=== PATIENT | male | born 1960 | race Caucasian/White ===

== ENCOUNTER → 2018-05-11 | Outpatient (CLI) | payer BC ==
[~2018-05-11] MED LIST: AZTH250C PO; LEVO500T69 PO; PRCD5U PO; PRD50T PO
--- NOTE | 2018-05-11 14:35 | Diagnostic Imaging Report ---
INDICATION: Swelling burning in the knees. Study compared with left knee radiographs 03/22/2012. There is moderate bilateral medial greater than lateral tibiofemoral compartmental osteoarthritis left more so than right and having increased on the left from the prior. No loose body, fracture or evidence for joint effusion however. IMPRESSION: Left greater than right predominantly medial tibiofemoral compartmental osteoarthritis has increased from a study of 2011. An acute appearing abnormality however not identified. Dictated by: Dictated on workstation # [id number]
== END ==
LOC: RAD 13:21
PROVIDERS: ATTEND Orthopaedic Surgery
DX: M17.0 Bilateral primary osteoarthritis of knee (principal)

== ENCOUNTER 2019-09-02 13:21 | Outpatient (CLI) | payer BC ==
[~2019-09-02] VITALS: Ht 172 cm; Wt 119.5 kg
[2019-09-02] MEDS ORDERED: CYAN250010 PO (13:36)
[2019-09-02] MEDS ORDERED: MULT1CAP27 PO (13:36)
[2019-09-02] MEDS ORDERED: OMG1KC PO (13:36)
[2019-09-02] MEDS ORDERED: BEET ROOT PO (13:36)
[2019-09-02] MEDS ORDERED: METF-397 PO (13:36)
[2019-09-02] MEDS ORDERED: CHOL200025 PO (13:36)
[2019-09-02] MEDS ORDERED: MAGN400C PO (13:36)
[2019-09-02] MEDS ORDERED: ASCO500C17 PO (13:36)
[2019-09-02] MEDS ORDERED: CIDE500T PO (13:36)
[2019-09-02] MEDS ORDERED: TURM538C PO (13:36)
[2019-09-02 13:38] VITALS: BP 158/100
[2019-09-02 14:11] LABS: BASOPHILS % (AUTO) 0 % (0-10); EOSINOPHILS # (AUTO) 0.1 10^3/uL (0.0-0.3); EOSINOPHILS % (AUTO) 1 % (0-10); HEMATOCRIT 43 % (40-54); HEMOGLOBIN 14.2 G/DL (13.3-17.7); LYMPHOCYTES # (AUTO) 2.2 X 10^3 (1.0-4.0); LYMPHOCYTES % (AUTO) 24 % (12-44); MEAN CORPUSCULAR HEMOGLOBIN 29 PG (25-34); MEAN CORPUSCULAR HGB CONC 33 G/DL (32-36); MEAN CORPUSCULAR VOLUME 87 FL (80-99); MONOCYTES # (AUTO) 0.7 X 10^3 (0.0-1.0); MONOCYTES % (AUTO) 8 % (0-12); NEUTROPHILS # (AUTO) 6.2 X 10^3 (1.8-7.8); NEUTROPHILS % (AUTO) 67 % (42-75); PLATELET COUNT 304 10^3/uL (130-400); WHITE BLOOD COUNT 9.3 10^3/uL (4.3-11.0)
[2019-09-02 14:11] LABS: BILIRUBIN,URINE NEGATIVE (NEGATIVE); CLARITY,URINE CLOUDY; COLOR,URINE YELLOW; GLUCOSE, URINE (UA) NEGATIVE (NEGATIVE); KETONES,URINE NEGATIVE (NEGATIVE); LEUKOCYTE ESTERASE ,URINE NEGATIVE (NEGATIVE); NITRITE,URINE NEGATIVE (NEGATIVE); PROTEIN,URINE NEGATIVE (NEGATIVE)
[2019-09-02 14:21] LABS: INR 0.9 (0.8-1.4); PROTHROMBIN TIME PATIENT 12.2 SEC (12.2-14.7)
[2019-09-02 14:31] LABS: ALBUMIN 4.3 GM/DL (3.2-4.5); BILIRUBIN,TOTAL 0.3 MG/DL (0.1-1.0); CALCIUM 10.4 MG/DL (8.5-10.1); CREATININE SERUM 1.26 MG/DL (0.60-1.30); POTASSIUM 4.3 MMOL/L (3.6-5.0); TOTAL PROTEIN 7.7 GM/DL (6.4-8.2)
[2019-09-02 14:35] LABS: ERYTHROCYTE SEDIMENTATION RATE 19 MM/HR (0-30)
[2019-09-02 14:47] LABS: BACTERIA,URINE NEGATIVE /HPF; SQUAMOUS EPITHELIAL CELL,UR RARE /HPF; WBC,URINE RARE /HPF
--- NOTE | 2019-09-02 15:16 | Diagnostic Imaging Report ---
INDICATION: Preop screening. PA and lateral views were obtained. COMPARISON: Comparison made with prior examination from 07/04/2011. FINDINGS: The heart size, mediastinal configuration, and pulmonary vascularity are within normal limits. There is no pleural effusion, pneumothorax, or pneumonia. The osseous structures are unremarkable. IMPRESSION: No acute cardiopulmonary abnormality. Dictated by: Dictated on workstation # [id number]
== END 2019-09-02 15:33 ==
LOC: PREOP 13:21
PROVIDERS: ATTEND Orthopaedic Surgery
DX: Z01.818 Encounter for other preprocedural examination (principal); Z11.2 Encounter for screening for other bacterial diseases; M17.11 Unilateral primary osteoarthritis, right knee; R53.83 Other fatigue
CPT/HCPCS: 36415; 71046; 80053; 81000; 85025; 85610; 85652; 86850; 86900; 86901; 87081; 93005

== ENCOUNTER 2019-09-17 07:23 | Inpatient (IN) | payer BC ==
--- NOTE | 2019-09-03 12:58 | HISTORY AND PHYSICAL ---
DATE OF SERVICE: INPATIENT ADMISSION This will be for inpatient admission. Date of service, date of surgery, date of admission will be 09/17/2019 for right total knee arthroplasty. The patient will require regular inpatient admission due to pain management, need for physical therapy due to gait abnormalities and comorbidities. STATEMENT OF MEDICAL NECESSITY: The patient is a 58-year-old gentleman with complaints of progressively worsening right knee pain. Radiographs reveal severe medial and patellofemoral osteoarthritis. He has undergone treatment with arthroscopies as well as injections, activity modifications, and anti-inflammatories without relief. Due to functional impairment and failure to improve with conservative measures, the patient elected to proceed with surgical intervention. REVIEW OF SYSTEMS: No chest pain, no shortness of breath, no dysuria. PAST MEDICAL HISTORY: Diabetes, borderline hypertension. PAST SURGICAL HISTORY: Bilateral knee arthroscopy. Lymph node excision. FAMILY HISTORY: Lung cancer. PRIMARY CARE PROVIDER: Dr. Alanis. MEDICATIONS: Metformin and magnesium. ALLERGIES: No known drug allergies. SOCIAL HISTORY: The patient is a former smoker. Denies alcohol use. PHYSICAL EXAMINATION: GENERAL: The patient is well developed, well nourished, in no acute distress. HEENT: Normocephalic, atraumatic. Pupils are equal, round, reactive to light. Oropharynx is clear. NECK: Supple, no lymphadenopathy. LUNGS: Clear to auscultation bilaterally. HEART: Regular rate and rhythm. ABDOMEN: Soft, nontender, nondistended. EXTREMITIES: The patient ambulates with an antalgic gait. He has varus alignment of his right knee moderate effusions noted. He is tender along his medial joint line. He has pain medially with [place]. There is no varus valgus laxity. Negative anterior and posterior drawer. Range of motion is 0/2/120. IMPRESSION: Severe right knee osteoarthritis. PLAN: Right total knee arthroplasty. The risks, benefits, options, ramifications and recovery have been discussed at length with the patient. He understands and wishes to proceed. Job ID: [id number] DocumentID: [id number] Dictated Date: 09/03/2019 12:30:15 Outboard Motorboat Rigger Date: 09/03/2019 12:57:46 Dictated By: NITESH JORDAN MD
[~2019-09-17] VITALS: Ht 172 cm; Wt 119.5 kg
[2019-09-17] VITALS (10 sets, daily range): BP systolic 113–163; BP diastolic 63–103
[~2019-09-17 07:23] MED LIST changes: +ASCO500C17 PO; +BEET ROOT PO; +CHOL200025 PO; +CIDE500T PO; +CYAN250010 PO; +MAGN400C PO; +METF-397 PO; +MULT1CAP27 PO; +OMG1KC PO; +TURM538C PO
[2019-09-17] MEDS ORDERED: ONDANSETRON 4 MG/2 ML (SDV) Z0FRAN IVP PRN ×2 (07:30→11:30)
[2019-09-17] MEDS ORDERED: diphenhydrAMINE 50 MG/ML INJ (BENADRYL) IVP PRN (07:30)
[2019-09-17] MEDS ORDERED: morphine PCA 100 MG/100 ML BAG IV PRN (07:30)
[2019-09-17] MEDS ORDERED: ACETAMINOPHEN 325 MG TABLET PO PRN (07:30)
--- NOTE | 2019-09-17 07:32 | Progress Note-Pre Operative ---
Pre-Operative Progress Note H&P Reviewed The H&P was reviewed, patient examined and no changes noted. Date Seen by Provider: Sep 17, 2019 Time Seen by Provider: 07:32 Date H&P Reviewed: Sep 17, 2019 Time H&P Reviewed: 07:32 Pre-Operative Diagnosis: right knee primary osteosrthritis NITESH JORDAN MD Sep 17, 2019 07:32
--- NOTE | 2019-09-17 07:33 | Progress Note-Post Operative ---
Post-Operative Progess Note Surgeon (s)/Claims Auditor (s) Surgeon NITESH JORDAN MD Claims Auditor: Kishore Lee Pre-Operative Diagnosis right knee primary osteosrthritis Post-Operative Diagnosis right knee primary osteoarthritis Procedure & Operative Findings Date of Procedure 09/17/19 Procedure Performed/Findings right total knee arthroplasty Anesthesia Type GETA Estimated Blood Loss Estimated blood loss (mL): minimal Specimens/Packing Specimens Removed none Packing: none NITESH JORDAN MD Sep 17, 2019 07:33
[2019-09-17] MEDS ORDERED: OXYC1TAB87 PO (07:34)
--- NOTE | 2019-09-17 07:36 | D/C HH Face to Face Order ---
D/C Face to Face Orders Reconcile Patient Problems Problems Reviewed?: Yes Instructions for Patient [facility] [employer], Patient Instructions/FollowUp: three weeks Physician to follow Patient: three weeks Discharge Diet for Home: ADA Diet Patient Data-Allergies,Ht & Wt Patient Allergies: Coded Allergies: No Known Drug Allergies (Unverified , 09/02/19) Home Health Need/Face to Face Date of Face to Face: Sep 17, 2019 Clinical Findings: Instability, Pain with ambulation, Unsteady gait I have seen Pt kdbh-[id number]: Yes Discharged To: Home Diagnosis/Conditions: right total knee arthroplasty Patient is Homebound due to: Jennifer fall risk due to instabilty, Muscle weakness, Pain w/ambulation Homebound Status Due to the above stated illness, injury or surgical procedure (medical condition or diagnosis) and associated clinical findings, the patient is homebound because of his/her inability to leave home except with aid of a supportive device and/or person AND leaving the home requires a considerable and taxing effort or is medically contraindicated. Pt req the following assistanc: Walker Home Health Nursing Orders Home Health Services Order: Physical Therapy-Evaluate & Treat DC right knee tiffanie and apply steri strips 10/01/19 Therapy Orders Therapy Orders: Physical Therapy, PT to assess for OT Therapy Specific Orders: Eval assistive deivces, Teach enviro modifications/safety, Gait training, Increase strength/endurance, Provider maintenance therapy, Restore ROM Certify Stmt I certify that this patient is under my care and that I, a nurse practitioner or a physician; a administrative sales assistant working with me, had a face to face encounter that - meets the physician face to face encounter requirements with this patient as dated. NITESH JORDAN MD Sep 17, 2019 07:36
[2019-09-17] MEDS ORDERED: INTRA-ARTICULAR IU ONE ×5 (07:45)
[2019-09-17] MEDS: LACTATED RINGERS 1,000 ML IV PRN ×2 (07:53→09:10)
[2019-09-17] MEDS ORDERED: CEFUROXIME INJECTION 1,500 MG in WATER (STERILE) FOR INJECTION 15 ML IV ONE (08:00)
[2019-09-17] MEDS ORDERED: MIDAZOLAM 2 MG/2 ML (VERSED) VIAL ONE (08:09)
[2019-09-17] MEDS ORDERED: BUPIVACAINE 0.5% 30 ML (SENSORCAINE) VIAL ONE (08:09)
[2019-09-17] MEDS ORDERED: fentaNYL INJECTION 100 MCG/2 ML AMP ONE (08:10)
[2019-09-17] MEDS ORDERED: TRANEXAMIC ACID 100 MG/ML 10 ML INJECTION IV ONE (09:24)
[2019-09-17] MEDS ORDERED: proPOfol 200 MG/20 ML (DIPRIVAN) VIAL IV ONE (09:24)
[2019-09-17] MEDS ORDERED: SEVOFLURANE (ULTANE) 15 ML INHAL SOLN ONE ×3 (09:24→11:02)
[2019-09-17] MEDS ORDERED: ONDANSETRON 4 MG/2 ML (SDV) Z0FRAN ONE (09:24)
[2019-09-17] MEDS ORDERED: LIDOCAINE PF 2% 5 ML (XYLOCAINE) VIAL ONE (09:24)
[2019-09-17] MEDS ORDERED: HYDROmorphone 2 MG/ML VIAL (DILAUDID) ONE (09:53)
[2019-09-17] MEDS ORDERED: PROMETHAZINE INJ 25 MG/ML (PHENERGAN) AMP IVP ONE (11:30)
[2019-09-17] MEDS ORDERED: MEPERIDINE (DEMEROL) INJ 50 MG/ML IVP ONE (11:30)
[2019-09-17] MEDS ORDERED: morphine INJ 10 MG/ML 1ML (SYR OR VIAL) IVP ONE (11:30)
[2019-09-17] MEDS ORDERED: HYDROmorphone 2 MG/ML VIAL (DILAUDID) IV ONE (11:30)
--- NOTE | 2019-09-17 12:10 | NUR ---
FAROOQ MORGAN admitted to room 419-1, with an admitting diagnosis of RIGHT KNEE REPLACEMENT, on 09/17/19 from SURGERY via BED, accompanied by STAFF.FAROOQ MORGAN introduced to surroundings, call light, bed controls, phone, TV, temperature control, lights, meal times, smoking policy, visitor policy, side rail policy, bathrooms and showers. Patient Rights given to patient in the handbook. FAROOQ MORGAN verbalizes understanding that [facility] is not responsible for the loss or damage to any personal effects or valuables that are kept in the patients posession during their hospitalization. The following Patient Care Plans were discussed with the PATIENT: Discharge Planning, PAIN, KNOWLEDGE, IMMOBILITY . FAROOQ MORGAN verbalizes understanding of Interdisciplinary Patient Education.
--- NOTE | 2019-09-17 12:18 | Progress Note ---
Standard Progress Note Progress Notes/Assess & Plan Date Seen by a Provider: Sep 17, 2019 Time Seen by a Provider: 12:00 Progress/Assessment & Plan post op check no complaints radiographs--HW well positioned without fracture RLE--2 plus DP pulse with brisk cap refill. intact DF and PF of toes and ankle. Sensation intact throughout s/p RTKA mobilize as able NITESH JORDAN MD Sep 17, 2019 12:18
[2019-09-17] MEDS ORDERED: morphine PCA 100 MG/100 ML BAG IV ONE (12:48)
--- NOTE | 2019-09-17 13:13 | Diagnostic Imaging Report ---
INDICATION: Postoperative. TECHNIQUE: Two postoperative radiographs of the knee. CORRELATION STUDY: 05/11/2018. FINDINGS: There are postsurgical changes of a total knee arthroplasty. Alignment is anatomic. Installed hardware appearing unremarkable. Surgical changes in the posterior patella. Overlying soft tissue gas collections and skin tiffanie are present. IMPRESSION: Postsurgical changes of a total knee replacement. Dictated by: Dictated on workstation # [id number]
[2019-09-17] MEDS ORDERED: PATIENT MAY USE OWN MED,SINGLE MED PO SCH (13:30)
--- NOTE | 2019-09-17 14:19 | Physical Therapy Evaluation ---
PT Evaluation-General Medical Diagnosis Admission Date Sep 17, 2019 at 07:23 Medical Diagnosis: Right TKA Onset Date: Sep 17, 2019 Therapy Diagnosis Therapy Diagnosis: Muscle weakness, loss of ROM Precautions Precautions/Isolations: Standard Precautions Weight Bear Status Right Lower Extremity: Right Weight Bearing/Tolerated Referral Physician: Jesus Reason for Referral: Evaluation/Treatment Medical History Pertinent Medical History: DM, HTN Current History Patient presents following right TKA. Reviewed History: Yes Social History Home: Single Level Current Living Status: Spouse Entry Into Home: Ramp Prior Prior Level of Function SCALE: Activities may be completed with or without assistive devices. 1-Gahfceffsf-ablxqsx completes the activity by him/herself with no assistance from a helper. 5-Set-up or Clean-up Assistance-helper sets up or cleans up; patient completes activity. Butterfield assists only prior to or following the activity. 4-Supervision or Touching Assistance-helper provides verbal cues and/or touching/steadying and/or contact guard assistance as patient completes activity. Assistance may be provided throughout the activity or intermittently. 3-Partial/Moderate Assistance-helper does LESS THAN HALF the effort. Butterfield lifts, holds or supports trunk or limbs, but provides less than half the effort. 2-Substantial/Maximal Assistance-helper does MORE THAN HALF the effort. Butterfield lifts or holds trunk or limbs and provides more than half the effort. 8-Iresfuclv-yrzhdh does ALL the effort. Patient does none of the effort to complete the activity. Or, the assistance of 2 or more helpers is required for the patient to complete the activity. If activity was not attempted, code reason: 7-Patient Refused. 9-Not Applicable-not attempted and the patient did not perform the activity before the current illness, exacerbation or injury. 10-Not Attempted due to Environmental Limitations-(lack of equipment, weather restraints, etc.). 88-Not Attempted due to Medical Conditions or Safety Concerns. Bed Mobility: 6 Transfers (B,C,W/C): 6 Gait: 6 Stairs: 6 Indoor Mobility (Ambulation): Independent Stairs: Independent Prior Devices Use: None PT Evaluation-Current Subjective Patient is agreeable to therapy at this time. Pain Numeric Pain Scale: 5-Moderate Pain Location: Right Location Body Site: Knee Pt/Family Goals To get stronger and get home. Objective Patient Orientation: Person, Place, Time, Situation ROM/Strength ROM Lower Extremities Lacking about 8 degrees of extension to about 80 degrees flexion. Strength Lower Extremities Expected RLE weakness following surgery. Integumentary/Posture Integumentary See nursing notes. Sensory Vision: Functional Hearing: Functional Sensation Right Lower Extremit: Intact Sensation Left Lower Extremity: Intact Transfers Roll Left to Right (QC): 6 Sit to Lying (QC): 5 Lying to Sitting/Side of Bed(Q: 5 Sit to Stand (QC): 4 Chair/Tbr-hw-Gnhtu Xfer(QC): 4 Gait Does the Patient Walk?: Yes Mode of Locomotion: Walk Anticipated Mode of Locomotion: Walk Walk 10 feet (QC): 4 Walk 50 ft with 2 Turns(QC): 4 Walk 150 ft (QC): 4 Distance: 150' Gait Assistive Device: FWW Comments/Gait Description CGA for safety. Patient is stable during ambulation and is able to tolerate weight well on RLE. Wheelchair Training Does the Pt Use a Wheelchair?: No Balance Sitting Static: Good Sitting Dynamic: Good Standing Static: Good Standing Dynamic: Good Treatment RLE exercises x 10: ankle pumps, heel slides, quad sets, SAQ, SLR. Assessment/Needs Patient tolerates exercises well and is able to do all actively with no assistance. Patient is stable during ambulation. Patient in bed with call light and bedside table within reach, CPM on, set at 0/60. Rehab Potential: Good PT [employer] Counter Person Goals Senior Care Goals PT Senior Care Goals Time Frame: Sep 24, 2019 Roll Left & Right (QC): 6 Sit to Lying (QC): 6 Lying-Sitting on Side/Bed(QC): 6 Sit to Stand (QC): 6 Chair/Utm-yq-Sujrf Xfer(QC): 6 Toilet Transfer (QC): 6 Does the Patient Walk: Yes Walk 10 feet (QC): 6 Walk 50ft with 2 Turns (QC): 6 Walk 150 ft (QC): 6 PT Plan Problem List Problem List: Activity Tolerance, Functional Strength, Safety, Balance, Gait, Transfer, Bed Mobility, ROM Treatment/Plan Treatment Plan: Continue Plan of Care Treatment Plan: Bed Mobility, Education, Functional Activity Natasha, Functional Strength, Gait, Safety, Therapeutic Exercise, Transfers Treatment Duration: Sep 24, 2019 Frequency: 11 times per week Estimated Hrs Per Day: .25 hour per day Patient and/or Family Agrees t: Yes Safety Risks/Education Patient Education: Gait Training, Transfer Techniques, Correct Positioning, Safety Issues Teaching Recipient: Patient, Family Teaching Methods: Demonstration, Discussion Response to Teaching: Reinforcement Needed Discharge Recommendations Plan Patient will perform bed mobility training, transfer training, functional strength and endurance training, gait training, and balance training. Therapy Discharge Recommendati: Home & Family Time/GCodes Time In: 1331 Time Out: 1356 Total Billed Treatment Time: 25 Total Billed Treatment 1 visit EVL 12 FA 13 SHANITA JOHNSON PT Sep 17, 2019 14:19
--- NOTE | 2019-09-17 15:25 | NUR ---
visited and jodid w/ pt.
--- NOTE | 2019-09-17 15:47 | OPERATIVE REPORT ---
DATE OF SERVICE: 09/17/2019 PREOPERATIVE DIAGNOSIS: Right knee primary osteoarthritis. POSTOPERATIVE DIAGNOSIS: Right knee primary osteoarthritis. PROCEDURE: Right total knee arthroplasty. SURGEON: Paul Stahl MD CHARGE LOADER: Kishore Lee, who assisted throughout the procedure and closed the incisions. ANESTHESIA: General endotracheal by Marcus Carlos CRNA. TOURNIQUET TIME: Approximately 70 minutes at 300 mmHg. ESTIMATED BLOOD LOSS: Minimal. DRAINS: None. COMPLICATIONS: None. POSTOPERATIVE PLAN: Routine protocol. The patient was transferred to the recovery room awake and in stable condition. MATERIALS: Microport cemented size 4 femur, cemented size 4 tibia with a 12 mm insert and cemented size 35 patellar button. STATEMENT OF MEDICAL NECESSITY: The patient is a 58-year-old gentleman with longstanding progressive right knee pain. Radiographs revealed severe medial and patellofemoral arthrosis. He has undergone treatment with injections, anti-inflammatories and rest without relief. Due to functional impairment and failure to improve with conservative measures, the patient elected to proceed with surgical intervention. DESCRIPTION OF PROCEDURE: After risks and benefits of procedure were discussed and questions were answered, informed consent was signed and placed on chart, the operative site was confirmed in the preoperative holding area initialed by the surgeon. The patient was then transferred to the operating room and after adequate levels of general endotracheal anesthetic were obtained, a timeout was called, confirming the operative site. Right lower extremity was prepped and draped in the usual sterile fashion with the leg elevated and the knee flexed, tourniquet was inflated to 300 mmHg. Standard anterior approach was utilized. Hemostasis was obtained with cautery. Medial parapatellar arthrotomy was performed leaving 1 cm cuff on the patella for later reattachment. A portion of the fat pad was resected. Subperiosteal release was performed on the proximal medial tibia being careful stay on the bony surface. The ACL was resected. Intramedullary guide was passed into the femur and the distal cutting block was placed. Distal cut was made. The femur sized to a size 4. The 4 cutting block was placed parallel to the epicondylar axis and cuts were made from posterior to anterior. A subperiosteal release was then carefully performed on the posterior distal femur, being careful stay on the bony surface. Intramedullary guide was passed into the tibia. The drop cy transected the intermalleolar axis from the cutting block. The cut was made. The four baseplate was placed and prepared it with a drill and keel punch. The femoral trial was placed and trochlear cut was made. A 12 mm insert was placed. The patella was prepared by using the freehand technique and resecting 10 mm off the undersurface. The peg guide was placed and peg holes were drilled. The 35 trial was placed. Full extension was easily obtained, 120 degrees of flexion with gravity was easily obtained. There was no anterior/posterior laxity in flexion or extension. There was trace medial laxity in full extension, otherwise no medial or lateral laxity noted. The trials were removed. Joint was irrigated with pulse lavage. Periarticular block was placed in the posterior capsule, medial and lateral retinaculum and extensor mechanism as well as subcutaneous tissue. The joint was further irrigated with pulse lavage. The bone ends were irrigated and dried. The tibial baseplate was cemented into position. Excessive cement was removed. Superior surface was irrigated and dried and the polyethylene insert was placed. Distal femur was irrigated and dried and the femoral prosthesis was cemented into position. The knee was brought out into full extension until cement had cured. The undersurface of patella was irrigated and dried and the patellar button was cemented into position. Once the cement had cured, the knee was taken through range of motion. Full extension was easily obtained, 120 degrees of flexion with gravity was easily obtained. The patella tracked well. There was no anterior/posterior laxity in flexion or extension. There was a trace valgus laxity in full extension, otherwise no medial or lateral laxity noted. The joint was further irrigated with pulse lavage. Arthrotomy was closed with #2 Tevdek in gmqsiv-ju-fvrbb interrupted fashion. The patella tracked well with no undue tension at the repair site. Subcutaneous tissues were irrigated. A 0 Vicryl was used to deep subcutaneous tissue, 2-0 Vicryl for the superficial subcutaneous tissue, tiffanie used on the skin. A soft dressing was applied. The tourniquet was deflated. The patient was transferred to the recovery room awake and in stable condition. Job ID: [id number] DocumentID: [id number] Dictated Date: 09/17/2019 11:16:03 Inspector Tester Sorter Date: 09/17/2019 15:46:44 Dictated By: PAUL STAHL MD
--- NOTE | 2019-09-17 16:41 | Consultation - Hospitalist ---
HPI History of Present Illness: HPI/Chief Complaint Newton Thomas is a 58-year-old male with past medical history of prediabetes, osteoarthritis, who presented for a total knee arthroplasty. He underwent the surgery today and reportedly went well. He has no complaints or concerns at this time. He denies any fevers, chills, chest pain, shortness of breath, abdominal pain, nausea, vomiting, diarrhea, or constipation. He does have a history of prediabetes and takes metformin for this. We discussed the use of the incentive spirometer to help prevent pneumonia. We discussed the use of a bowel regimen to help prevent opioid-induced constipation. We discussed the need for early ambulation as well. Source: patient Exam Limitations: no limitations Date Seen 09/17/19 Attending Physician Paul Stahl MD PCP Rory Alanis DO Referring Physician Date of Admission Sep 17, 2019 at 07:23 Home Medications & Allergies Home Medications Reviewed patient Home Medication Reconciliation performed by pharmacy medication reconciliations food technician and/or nursing. Patients Allergies have been reviewed. Allergies Allergies Coded Allergies No Known Drug Allergies (Unverified09/02/19) Past Jmqdbvr-Nfmayc-Uphxsv Hx Past Med/Social Hx: Reviewed Nursing Past Med/Soc Hx Patient Social History Alcohol Use: Denies Use Recreational Drug Use: No Former Smoker, Quit: Sep 02, 1978 Type Used: Cigarettes Physical Abuse Screen: No Sexual Abuse: No Recent Foreign Travel: No Contact w/other who traveled: No (N) Recent Hopitalizations: No Recent Infectious Disease Expo: No Seasonal Allergies Seasonal Allergies: No Past Medical History Currently Using CPAP: Yes Musculoskeletal: Arthritis Loss of Vision: Denies Hearing Impairment: Denies History of Blood Disorders: No Adverse Reaction to Blood Diane: No (N/A) Family History Patient reports no known family medical history. Review of Systems Constitutional: no symptoms reported EENTM: no symptoms reported Respiratory: no symptoms reported Cardiovascular: no symptoms reported Gastrointestinal: no symptoms reported Genitourinary: no symptoms reported Musculoskeletal: no symptoms reported Skin: no symptoms reported Psychiatric/Neurological: No Symptoms Reported Physical Exam Physical Exam Vital Signs Vital Signs - First Documented Capillary Refill : Less Than 3 SecondsLess Than 3 Seconds Height, Weight, BMI Height: '" Weight: lbs. oz. kg; 40.39 BMI Method:Stated General Appearance: No Apparent Distress, Obese Neck: Normal Inspection, Supple Respiratory: Lungs Clear, Normal Breath Sounds, No Respiratory Distress Cardiovascular: Regular Rate, Rhythm, No Edema, No Murmur Gastrointestinal: Normal Bowel Sounds, Non Tender, Soft Extremity: No Pedal Edema, Other (Knee wrapped) Neurologic/Psychiatric: Alert, Oriented x3, No Motor/Sensory Deficits, Normal Mood/Affect Skin: Normal Color, Warm/Dry Results Results/Procedures Labs Patient resulted labs reviewed. Imaging: Reviewed Imaging Report Assessment/Plan Assessment and Plan Assess & Plan/Chief Complaint Osteoarthritis Status post total knee arthroplasty Underwent TKA 3/4 Pain regimen ordered Bowel regimen in place Incentive spirometer PT/OT Prediabetes Continue metformin Sliding scale insulin DVT prophylaxis: Lovenox Thank you for the consult. Do not hesitate to contact the hospitalist group with any questions or concerns. Diagnosis/Problems Diagnosis/Problems (1) S/P total knee replacement Status: Acute (2) Osteoarthritis Status: Acute (3) Prediabetes Status: Chronic Clinical Quality Measures DVT/VTE Risk/Contraindication: Risk Factor Score Per Nursin RFS Level Per Nursing on Admit: 4+=Very High MINDY ZHU MD Sep 17, 2019 16:41
[2019-09-17] MEDS: CEFUROXIME INJECTION 750 MG in WATER (STERILE) FOR INJECTION 10 ML IV SCH (17:00)
[2019-09-17] MEDS: SENNA W/DOCUSATE (SENOKOT S) TABLET PO SCH ×2 (17:00→21:06)
[2019-09-17] MEDS: NS IV 1000 ML 1,000 ML IV SCH ×2 (17:00→21:06)
[2019-09-17] MEDS: inSUlin ASPART (NovoLOG) 1 UNIT/0.01 ML (CHARGE PER UNIT) SC SCH ×2 (17:04→21:06)
[2019-09-17] MEDS: metFORMIN 500 MG (GLUCOPHAGE) TAB PO SCH (21:07)
[2019-09-18] VITALS (8 sets, daily range): BP systolic 160–187; BP diastolic 79–120
[2019-09-18] MEDS: CEFUROXIME INJECTION 750 MG in WATER (STERILE) FOR INJECTION 10 ML IV SCH (00:35)
[2019-09-18] MEDS: oxyCODONE/APAP 5/325MG (PERCOCET 5) TABLET PO PRN ×5 (06:04→20:32)
[2019-09-18] MEDS: MULTIVIT W/MINERALS TAB (THERAGRAN M) PO SCH (06:04)
[2019-09-18] MEDS: inSUlin ASPART (NovoLOG) 1 UNIT/0.01 ML (CHARGE PER UNIT) SC SCH ×4 (06:07→20:32)
[2019-09-18 06:13] LABS: HEMOGLOBIN 12.5 G/DL (13.3-17.7)
[2019-09-18 06:34] LABS: BUN/CREATININE RATIO 14; CARBON DIOXIDE 24 MMOL/L (21-32); CHLORIDE 104 MMOL/L (98-107); CREATININE SERUM 1.06 MG/DL (0.60-1.30); GFR ESTIMATED > 60; GLUCOSE 111 MG/DL (70-105); POTASSIUM 4.8 MMOL/L (3.6-5.0); SODIUM 137 MMOL/L (135-145)
[2019-09-18] MEDS: NS IV 1000 ML 1,000 ML IV SCH ×2 (06:50→19:30)
[2019-09-18] MEDS ORDERED: ENOXAPARIN 30 MG/0.3 ML (LOVENOX) SYR SC SCH (07:30)
--- NOTE | 2019-09-18 07:39 | Anesthesia-General Post-Op ---
General Patient Condition Mental Status/LOC: Same as Preop Cardiovascular: Satisfactory Nausea/Vomiting: Absent Respiratory: Satisfactory Pain: Controlled Complications: Absent Post Op Complications Complications None Follow Up Care/Instructions Patient Instructions None needed. Anesthesia/Patient Condition Patient Condition Patient is doing well, no complaints, stable vital signs, no apparent adverse anesthesia problems. No complications reported per nursing. RICHARD REINOSO CRNA Sep 18, 2019 07:39
--- NOTE | 2019-09-18 07:57 | Progress Note ---
Standard Progress Note Progress Notes/Assess & Plan Date Seen by a Provider: Sep 18, 2019 Time Seen by a Provider: 07:56 Progress/Assessment & Plan post op check no complaints radiographs--HW well positioned without fracture RLE--2 plus DP pulse with brisk cap refill. intact DF and PF of toes and ankle. Sensation intact throughout s/p RTKA mobilize as able Final Diagnosis no complaints Vital Signs Date Time Temp Pulse Resp B/P (MAP) Pulse Ox O2 Delivery O2 Flow Rate FiO2 09/18/19 07:00 20 09/18/19 04:00 37.2 84 20 160/90 (113) 99 Room Air 09/18/19 00:00 37.4 90 22 165/79 (107) 97 Room Air 09/17/19 21:00 18 09/17/19 20:00 37.1 87 16 132/73 (92) 97 Room Air 09/17/19 20:00 Room Air 09/17/19 16:00 36.2 84 20 135/84 (101) 98 Room Air 09/17/19 13:09 37.0 09/17/19 13:00 18 09/17/19 12:30 95 Nasal Cannula 2.00 09/17/19 12:10 Room Air 09/17/19 12:10 36.6 72 18 150/63 (92) 95 Room Air 09/17/19 12:00 Room Air 09/17/19 12:00 36.4 16 148/92 (110) 96 Room Air 09/17/19 11:50 16 148/92 (110) 100 5 09/17/19 11:45 Simple Mask 8 09/17/19 11:40 16 158/85 (109) 100 Simple Mask 5 09/17/19 11:30 16 142/85 (104) 99 Simple Mask 8 09/17/19 11:30 Simple Mask 8 09/17/19 11:20 16 113/67 (82) 100 Simple Mask 8 09/17/19 11:17 36.4 21 116/68 (84) 100 Simple Mask 8 09/17/19 11:17 Simple Mask 8 I & O 09/18/19 07:00 Intake Total 2200 ml Output Total 2325 ml Balance -125 ml Laboratory Tests Test 09/17/19 16:05 09/17/19 20:41 09/18/19 05:55 09/18/19 06:07 Range/Units Glucometer 117 H 106 106 70-110 MG/DL Hemoglobin 12.5 L 13.3-17.7 G/DL Hematocrit 39 L 40-54 % Sodium Level 137 135-145 MMOL/L Potassium Level 4.8 3.6-5.0 MMOL/L Chloride Level 104 98-107 MMOL/L Carbon Dioxide Level 24 21-32 MMOL/L Anion Gap 9 5-14 MMOL/L Blood Urea Nitrogen 15 7-18 MG/DL Creatinine 1.06 0.60-1.30 MG/DL Estimat Glomerular Filtration Rate > 60 BUN/Creatinine Ratio 14 Glucose Level 111 H 70-105 MG/DL Calcium Level 9.0 8.5-10.1 MG/DL RLE--dressing int\act. NVI distallly. No calf tenderness s/p RTKA doing well PT/OT NITESH JORDAN MD Sep 18, 2019 07:57
[2019-09-18] MEDS: SENNA W/DOCUSATE (SENOKOT S) TABLET PO SCH ×2 (08:51→19:33)
[2019-09-18] MEDS: ASPIRIN E.C. 81 MG (ECOTRIN) TAB PO SCH (08:51)
--- NOTE | 2019-09-18 09:47 | Occupational Therapy Eval ---
OT Evaluation-General/PLF Medical Diagnosis Admission Date Sep 17, 2019 at 07:23 Medical Diagnosis: Right TKA Onset Date: Sep 17, 2019 Therapy Diagnosis Therapy Diagnosis: RTKA; decreased ADL function Precautions Precautions/Isolations: Fall Prevention, Standard Precautions Safety Interventions: None Referral Physician: Jesus Referral Reason: Activity Tolerance, Self Care, Evaluation/Treatment, Strengthening/ROM Medical History Pertinent Medical History: DM, HTN Additional Medical History HTN, pre DM Current History Pt underwent R TKA 09/17/19. Reviewed History: Yes Social History Home: Single Level Current Living Status: Spouse Entry Into Home: [employer] retired; at home 05/02 ADL-Prior Level of Function SCALE: Activities may be completed with or without assistive devices. 3-Kzztjeyouf-ixgimuj completes the activity by him/herself with no assistance from a helper. 5-Set-up or Clean-up Assistance-helper sets up or cleans up; patient completes activity. [place] assists only prior to or following the activity. 4-Supervision or Touching Assistance-helper provides verbal cues and/or touching/steadying and/or contact guard assistance as patient completes activity. Assistance may be provided throughout the activity or intermittently. 3-Partial/Moderate Assistance-helper does LESS THAN HALF the effort. [place] lifts, holds or supports trunk or limbs, but provides less than half the effort. 2-Substantial/Maximal Assistance-helper does MORE THAN HALF the effort. [place] lifts or holds trunk or limbs and provides more than half the effort. 5-Kvfpzanoh-pqoqft does ALL the effort. Patient does none of the effort to complete the activity. Or, the assistance of 2 or more helpers is required for the patient to complete the activity. If activity was not attempted, code reason: 7-Patient Refused. 9-Not Applicable-not attempted and the patient did not perform the activity before the current illness, exacerbation or injury. 10-Not Attempted due to Environmental Limitations-(lack of equipment, weather restraints, etc.). 88-Not Attempted due to Medical Conditions or Safety Concerns. ADL PLOF Comments Pt states IND without use of AE. Currently working Self Care: Independent Functional Cognition: Independent DME/Equipment: Bath Bench, Grab Bars, Shower DME/Equipment Comments Pt has standard toilet, would benefit from commode/ high rise toilet Occupation: [employer] [address] Self: Yes OT Current Status Subjective Pt seen in recliner chair, chief nursing officer present. Pt agreeable to OT eval/ treat. present through session. Pt expresses 8/10 pain. Mental Status/Objective Patient Orientation: Person, Place, Time, Situation, Normal For Age Attachments: IV Current Glasses/Contacts: Yes Hearing Aids: No Dentures/Partials: No Hand Dominance: Right Upper Extremity ROM WFL BUE Upper Extremity Coordination WFL BUE Upper Extremity Sensation WFL BUE Upper Extremity Strength WFL BUE ADL-Treatment Eating (QC): 6 (per pt) Lower Body Dressing (QC): 2 (per clinical judgement) On/Off Footwear (QC): 1 (pt unable to reach feet, states typically able to don/doff footwear. Pt's states will assist at home.) Other Treatments Pt educated on OT role. Pt states 8/10 pain in R knee, chief nursing officer states pt does not desire to press medication button, pt agrees. Pt's present through session. Environment assessed at home: pt and agree commode with arm rests needed at home until increased strength/ decreased pain. Pt unable to reach feet, states will assist with all needs at home, and pt agree they plan to return home after d/c from acute. Pt completes sit to stand with walker with CGA, ambulates to bathroom and completes shower transfer with CGA, increased pain noted with rest break. Pt sit to stand from higher (bench) surface with SBA, use of grab bars, returns to recliner, pt's legs elevated. Pt educated on importance of movement and continuation of OT to increase functional IND for return home. Pt and agree, all needs met, call light and medication button within reach. Questions answered. Education OT Patient Education: Correct positioning, Instructions to caregiver, Modified ADL techniques, Purpose of tx/functional activities, Safety issues, Transfer techniques Teaching Recipient: Patient, Significant Other Teaching Methods: Demonstration, Discussion Response to Teaching: Verbalize Understanding, Return Demonstration OT Strategic Business Development Goals Strategic Business Development Goals Time Frame: Sep 25, 2019 Eating (QC): 6 Oral Hygiene (QC): 6 Toileting Hygiene (QC): 6 Shower/Bathe Self (QC): 5 Upper Body Dressing (QC): 6 Lower Body Dressing (QC): 4 On/Off Footwear (QC): 3 Additional Goals: 1-Demonstrate ADL Tasks, 2-Verbalize Understanding, 3- ImproveStrength/Natasha 1=Demonstrate adherence to instructed precautions during ADL tasks. 2=Patient will verbalize/demonstrate understanding of assistive devices/modifications for ADL. 3=Patient will improve strength/tolerance for activity to enable patient to perform ADL's. OT Education/Plan Problem List/Assessment Assessment: Decreased Activ Tolerance, Dependent Transfers, Impaired I ADL's, Impaired Self-Care Skills Discharge Recommendations Plan/Recommendations: Continue POC Therapy Discharge Recommendati: Home & Family, Post Acute OT Equpiment Recommendations-D/C: Toilet Riser Treatment Plan/Plan of Care Treatment,Training & Education: Yes Patient would benefit from OT for education, treatment and training to promote independence in ADL's, mobility, safety and/or upper extremity function for ADL's. Plan of Care: ADL Retraining, Caregiver Training, Functional Mobility, UE Funct Exercise/Act Treatment Duration: Sep 25, 2019 Frequency: 5 times per week Estimated Hrs Per Day: .25 hour per day Agreement: Yes Rehab Potential: Good Time/GCodes Start Time: 09:25 Stop Time: 09:37 Total Time Billed (hr/min): 12 Billed Treatment Time 1, EVM (12) ANNABELLA PRUETT OTR Sep 18, 2019 09:47
[2019-09-18] MEDS ORDERED: lisINopril 20 MG (PRINIVIL) TABLET PO SCH (09:59)
--- NOTE | 2019-09-18 10:00 | Physical Therapy Daily Note ---
PT Daily Note-Current Subjective Patient is agreeable to therapy at this time. Pain Numeric Pain Scale: 3 Location: Right Location Body Site: Knee Appearance Patient in recliner with call light and bedside table within reach. Mental Status Patient Orientation: Person, Place, Time, Situation Attachments: IV Transfers SCALE: Activities may be completed with or without assistive devices. 7-Hopnkkgtqc-rlvbywt completes the activity by him/herself with no assistance from a helper. 5-Set-up or Clean-up Assistance-helper sets up or cleans up; patient completes activity. [place] assists only prior to or following the activity. 4-Supervision or Touching Assistance-helper provides verbal cues and/or touching/steadying and/or contact guard assistance as patient completes activ ity. Assistance may be provided throughout the activity or intermittently. 3-Partial/Moderate Assistance-helper does LESS THAN HALF the effort. [place] lifts, holds or supports trunk or limbs, but provides less than half the effort. 2-Substantial/Maximal Assistance-helper does MORE THAN HALF the effort. [place] lifts or holds trunk or limbs and provides more than half the effort. 1-Elnpfcnoj-lczvuj does ALL the effort. Patient does none of the effort to complete the activity. Or, the assistance of 2 or more helpers is required for the patient to complete the activity. If activity was not attempted, code reason: 7-Patient Refused. 9-Not Applicable-not attempted and the patient did not perform the activity before the current illness, exacerbation or injury. 10-Not Attempted due to Environmental Limitations-(lack of equipment, weather restraints, etc.). 88-Not Attempted due to Medical Conditions or Safety Concerns. Roll Left & Right (QC): 6 Lying to Sitting/Side of Bed(Q: 6 Sit to Stand (QC): 4 Chair/Zia-sq-Lkydr Xfer(QC): 4 Weight Bearing Right Lower Extremity: Right Weight Bearing/Tolerated Gait Training Does the Patient Walk?: Yes Distance: 150' Walk 10 feet (QC): 4 Walk 50 ft with 2 Turns(QC): 4 Walk 150 ft (QC): 4 Gait Persons Needed: 1 Gait Assistive Device: FWW Patient is stable during ambulation. Wheelchair Training Does the Pt Use a Wheelchair?: No Exercises Supine Ex: Ankle pumps, Quad Set, Heel Slides, Short Arc Quads, Straight leg raise Supine Reps: 10 (RLE) Treatments RLE exercises, bed mobility, transfers, ambulation. Assessment Current Status: Good Progress Patient tolerates exercises well, at this time patient needed assist with SLR. Patient is stable during ambulation, relying heavily on BUE. PT Jail Goals Jail Goals PT Judicial Clerk Goals Time Frame: Sep 24, 2019 Roll Left & Right (QC): 6 Sit to Lying (QC): 6 Lying-Sitting on Side/Bed(QC): 6 Sit to Stand (QC): 6 Chair/Yxr-ti-Garzc Xfer(QC): 6 Toilet Transfer (QC): 6 Does the Patient Walk: Yes Walk 10 feet (QC): 6 Walk 50ft with 2 Turns (QC): 6 Walk 150 ft (QC): 6 PT Plan Problem List Problem List: Activity Tolerance, Functional Strength, Safety, Balance, Gait, Transfer, Bed Mobility, ROM Treatment/Plan Treatment Plan: Continue Plan of Care Treatment Plan: Bed Mobility, Education, Functional Activity Natasha, Functional Strength, Gait, Safety, Therapeutic Exercise, Transfers Treatment Duration: Sep 24, 2019 Frequency: 11 times per week Estimated Hrs Per Day: .25 hour per day Patient and/or Family Agrees t: Yes Safety Risks/Education Patient Education: Gait Training, Transfer Techniques Teaching Recipient: Patient Teaching Methods: Demonstration, Discussion Response to Teaching: Reinforcement Needed Time/GCodes Time In: 805 Time Out: 828 Total Billed Treatment Time: 23 Total Billed Treatment 1 visit EX 11 GT 12 HAROON MACHUCA PT Sep 18, 2019 10:00
--- NOTE | 2019-09-18 11:47 | NUR ---
CM/SS visited with the patient for discharge planning. Plan: The patient will go home with home health. Home Health: The patient was provided for with a Patient Preference Form and chose to use [facility]. CM/SS called and spoke with Mariluz. Faxed over the medical records and home health orders. Walker: The patient already has a Front Wheeled Walker second hand. They did not have any other needs.
[2019-09-18] MEDS: hydrALAZINE (APESOLINE) 20 MG/ML VIAL IV PRN (14:23)
--- NOTE | 2019-09-18 14:37 | Physical Therapy Daily Note ---
PT Daily Note-Current Subjective Patient is agreeable to therapy at this time. Pain Numeric Pain Scale: 5-Moderate Pain Location: Right Location Body Site: Knee Appearance Patient in recliner with call light and bedside table within reach. Mental Status Attachments: IV Transfers SCALE: Activities may be completed with or without assistive devices. 8-Qsagdgzuuh-ytucxvb completes the activity by him/herself with no assistance from a helper. 5-Set-up or Clean-up Assistance-helper sets up or cleans up; patient completes activity. [place] assists only prior to or following the activity. 4-Supervision or Touching Assistance-helper provides verbal cues and/or touching/steadying and/or contact guard assistance as patient completes activity. Assistance may be provided throughout the activity or intermittently. 3-Partial/Moderate Assistance-helper does LESS THAN HALF the effort. [place] lifts, holds or supports trunk or limbs, but provides less than half the effort. 2-Substantial/Maximal Assistance-helper does MORE THAN HALF the effort. [place] lifts or holds trunk or limbs and provides more than half the effort. 0-Fwxxlborb-xtrrog does ALL the effort. Patient does none of the effort to complete the activity. Or, the assistance of 2 or more helpers is required for the patient to complete the activity. If activity was not attempted, code reason: 7-Patient Refused. 9-Not Applicable-not attempted and the patient did not perform the activity before the current illness, exacerbation or injury. 10-Not Attempted due to Environmental Limitations-(lack of equipment, weather restraints, etc.). 88-Not Attempted due to Medical Conditions or Safety Concerns. Sit to Stand (QC): 4 Chair/Gml-ev-Qnanl Xfer(QC): 4 Weight Bearing Right Lower Extremity: Right Weight Bearing/Tolerated Gait Training Does the Patient Walk?: Yes Distance: 200' Walk 10 feet (QC): 4 Walk 50 ft with 2 Turns(QC): 4 Walk 150 ft (QC): 4 Gait Persons Needed: 1 Gait Assistive Device: FWW CGA for safety. Patient does not bend right knee while ambulating and is keeping it straight, also externally rotated. Patient uses BUE for support. Wheelchair Training Does the Pt Use a Wheelchair?: No Exercises Supine Ex: Ankle pumps, Quad Set, Heel Slides (x 2), Straight leg raise Supine Reps: 10 (RLE) Seated Therapy Exercises: Long arc quads Seated Reps: 10 (RLE) Treatments RLE exercises, ambulation, transfers. Assessment Current Status: Good Progress Patient tolerates exercises well, needs assist with SLR at this time. Patient is steady during ambulation but does not bend right knee and has leg externally rotated. PT Fdc Goals Fdc Goals PT Fdc Goals Time Frame: Sep 24, 2019 Roll Left & Right (QC): 6 Sit to Lying (QC): 6 Lying-Sitting on Side/Bed(QC): 6 Sit to Stand (QC): 6 Chair/Tqr-mm-Ctamd Xfer(QC): 6 Toilet Transfer (QC): 6 Does the Patient Walk: Yes Walk 10 feet (QC): 6 Walk 50ft with 2 Turns (QC): 6 Walk 150 ft (QC): 6 PT Plan Problem List Problem List: Activity Tolerance, Functional Strength, Safety, Balance, Gait, Transfer, Bed Mobility, ROM Treatment/Plan Treatment Plan: Continue Plan of Care Treatment Plan: Bed Mobility, Education, Functional Activity Natasha, Functional Strength, Gait, Safety, Therapeutic Exercise, Transfers Treatment Duration: Sep 24, 2019 Frequency: 11 times per week Estimated Hrs Per Day: .25 hour per day Patient and/or Family Agrees t: Yes Safety Risks/Education Patient Education: Gait Training, Transfer Techniques Teaching Recipient: Patient Teaching Methods: Demonstration, Discussion Response to Teaching: Reinforcement Needed Time/GCodes Time In: 1249 Time Out: 1312 Total Billed Treatment Time: 23 Total Billed Treatment 1 visit EX 12 GT 11 HAROON MACHUCA PT Sep 18, 2019 14:37
--- NOTE | 2019-09-18 15:43 | NUR ---
IRF Evaluation Order received to evaluate patient for the ARU. Chart review complete and it appears patient is ambulating (200ft, FWW) and transferring with SBA. Additionally, discharge planning has taken place and it appears patient will be returning home with [facility]. Thank you for this referral.
[2019-09-18] MEDS ORDERED: HYDROCHLOROTHIAZIDE 12.5 MG (HCTZ) CAP PO NR (16:00)
--- NOTE | 2019-09-18 16:16 | NUR ---
HCTZ REQUESTED FROM PHARM
[2019-09-18] MEDS: ENOXAPARIN 40 MG/0.4 ML (LOVENOX) SYR SC SCH (19:28)
[2019-09-18] MEDS: metFORMIN 500 MG (GLUCOPHAGE) TAB PO SCH (19:35)
[2019-09-19] MEDS: hydrALAZINE (APESOLINE) 20 MG/ML VIAL IV PRN ×2 (00:02→04:15)
[2019-09-19] MEDS: oxyCODONE/APAP 5/325MG (PERCOCET 5) TABLET PO PRN ×2 (02:37→09:57)
[2019-09-19 03:16] VITALS: BP 177/101
[2019-09-19 04:10] VITALS: BP 184/103
[2019-09-19] MEDS: MULTIVIT W/MINERALS TAB (THERAGRAN M) PO SCH (05:03)
[2019-09-19] MEDS: inSUlin ASPART (NovoLOG) 1 UNIT/0.01 ML (CHARGE PER UNIT) SC SCH (05:03)
--- NOTE | 2019-09-19 05:04 | DISCHARGE SUMMARY ---
DATE OF SERVICE: 09/19/2019 DIAGNOSES: 1. Right knee primary osteoarthritis. 2. Diabetes. 3. Hypertension. PROCEDURE: Right total knee arthroplasty. SUMMARY: The patient is a 58-year-old gentleman who underwent a right total knee arthroplasty on the day of admission. Postoperatively, he did very well. At time of discharge, his wound was clean, dry and no calf tenderness. Negative Ai signs. He is tolerating diet well and tolerating pain with oral pain medication. He cleared physical therapy. CONDITION AT DISCHARGE: Good. DISCHARGE DIET: Regular. FOLLOWUP: Followup is in three weeks. ACTIVITIES: Weightbearing as tolerated with a walker as needed. DISCHARGE MEDICATIONS: Home medications, aspirin one per day for 4 weeks and Percocet as needed for pain. Job ID: [id number] DocumentID: [id number] Dictated Date: 09/18/2019 18:05:09 Welding Machine Setter Date: 09/19/2019 05:03:24 Dictated By: NITESH JORDAN MD
[2019-09-19 05:45] LABS: HEMOGLOBIN 12.3 G/DL (13.3-17.7)
--- NOTE | 2019-09-19 07:03 | Progress Note ---
Standard Progress Note Progress Notes/Assess & Plan Date Seen by a Provider: Sep 19, 2019 Time Seen by a Provider: 07:02 Progress/Assessment & Plan post op check no complaints radiographs--HW well positioned without fracture RLE--2 plus DP pulse with brisk cap refill. intact DF and PF of toes and ankle. Sensation intact throughout s/p RTKA mobilize as able Final Diagnosis no complaints Vital Signs Date Time Temp Pulse Resp B/P (MAP) Pulse Ox O2 Delivery O2 Flow Rate FiO2 09/19/19 04:10 184/103 (130) 09/19/19 03:16 37.6 91 20 177/101 (126) 98 Room Air 09/18/19 23:55 37.5 88 20 183/106 (131) 96 NIV CPAP 09/18/19 21:00 20 09/18/19 20:16 Room Air 09/18/19 19:25 37.5 99 20 172/84 (113) 97 Room Air 09/18/19 18:48 20 09/18/19 16:04 37.3 96 20 175/94 (121) 96 Room Air 09/18/19 15:06 96 175/94 (121) 09/18/19 12:00 37.2 85 20 187/95 (125) 97 Room Air 09/18/19 09:00 Room Air 09/18/19 08:00 36.8 92 20 180/120 (140) 93 Room Air I & O 09/19/19 07:00 Intake Total 2800 ml Output Total 3100 ml Balance -300 ml Laboratory Tests Test 09/18/19 11:44 09/18/19 16:12 09/18/19 20:06 09/19/19 04:45 Range/Units Glucometer 114 H 133 H 130 H 70-110 MG/DL Hemoglobin 12.3 L 13.3-17.7 G/DL Hematocrit 38 L 40-54 % Test 09/19/19 05:00 Range/Units Glucometer 127 H 70-110 MG/DL RLE--incision clean and dry. no calf tenderness. Neg Ai's s/p RTKA DC home after PT today NITESH JORDAN MD Sep 19, 2019 07:03
[2019-09-19] MEDS ORDERED: morphine INJ 4 MG/ML 1 ML (VIAL/SYRINGE) IVP PRN (07:15)
[2019-09-19] MEDS ORDERED: LISI40TA PO (07:50)
[2019-09-19 08:00] VITALS: BP 158/89
[2019-09-19] MEDS: SENNA W/DOCUSATE (SENOKOT S) TABLET PO SCH (08:26)
[2019-09-19] MEDS: ENOXAPARIN 40 MG/0.4 ML (LOVENOX) SYR SC SCH (08:26)
[2019-09-19] MEDS: ASPIRIN E.C. 81 MG (ECOTRIN) TAB PO SCH (08:26)
--- NOTE | 2019-09-19 08:35 | NUR ---
ASSET AVAILABILITY LEADER DCD per doctor order. 75cc morphine wasted per protocol
[2019-09-19] MEDS ORDERED: lisINopril 40 MG (PRINIVIL) TABLET PO SCH (09:00)
[2019-09-19] MEDS ORDERED: HYDROCHLOROTHIAZIDE 12.5 MG (HCTZ) CAP PO SCH (09:00)
[2019-09-19] MEDS ORDERED: lisINopril 20 MG (PRINIVIL) TABLET PO SCH (09:00)
--- NOTE | 2019-09-19 10:02 | Physical Therapy Daily Note ---
PT Daily Note-Current Subjective Patient is agreeable to therapy at this time. Pain Numeric Pain Scale: 6 Location: Right Location Body Site: Knee Appearance Patient in recliner with call light and bedside table within reach. Patient present. Mental Status Patient Orientation: Person, Place, Time, Situation Transfers SCALE: Activities may be completed with or without assistive devices. 1-Daregpebbg-zrcnpfq completes the activity by him/herself with no assistance from a helper. 5-Set-up or Clean-up Assistance-helper sets up or cleans up; patient completes activity. [place] assists only prior to or following the activity. 4-Supervision or Touching Assistance-helper provides verbal cues and/or touching/steadying and/or contact guard assistance as patient completes activity. Assistance may be provided throughout the activity or intermittently. 3-Partial/Moderate Assistance-helper does LESS THAN HALF the effort. [place] lifts, holds or supports trunk or limbs, but provides less than half the effort. 2-Substantial/Maximal Assistance-helper does MORE THAN HALF the effort. [place] lifts or holds trunk or limbs and provides more than half the effort. 4-Ocrkwcvgy-sybpzr does ALL the effort. Patient does none of the effort to complete the activity. Or, the assistance of 2 or more helpers is required for the patient to complete the activity. If activity was not attempted, code reason: 7-Patient Refused. 9-Not Applicable-not attempted and the patient did not perform the activity before the current illness, exacerbation or injury. 10-Not Attempted due to Environmental Limitations-(lack of equipment, weather restraints, etc.). 88-Not Attempted due to Medical Conditions or Safety Concerns. Roll Left & Right (QC): 6 Sit to Lying (QC): 6 Lying to Sitting/Side of Bed(Q: 6 Sit to Stand (QC): 6 Chair/Zsl-ra-Iyagw Xfer(QC): 6 Weight Bearing Right Lower Extremity: Right Weight Bearing/Tolerated Gait Training Does the Patient Walk?: Yes Distance: 200' Walk 10 feet (QC): 6 Walk 50 ft with 2 Turns(QC): 6 Walk 150 ft (QC): 6 Gait Assistive Device: FWW Wheelchair Training Does the Pt Use a Wheelchair?: No Exercises Supine Ex: Ankle pumps, Quad Set, Heel Slides (x 2), Short Arc Quads, Straight leg raise Supine Reps: 10 (RLE only) Treatments RLE exercises, bed mobility, transfers, ambulation. Assessment Current Status: Good Progress Patient tolerates exercises well and is able to perform all actively with no assistance at this time. Patient is bending knee more and starting to walk with heel toe during ambulation. PT Group Home Goals Agriculture Engineer Goals PT Group Home Goals Time Frame: Sep 24, 2019 Roll Left & Right (QC): 6 Sit to Lying (QC): 6 Lying-Sitting on Side/Bed(QC): 6 Sit to Stand (QC): 6 Chair/Qvc-kw-Pumny Xfer(QC): 6 Toilet Transfer (QC): 6 Does the Patient Walk: Yes Walk 10 feet (QC): 6 Walk 50ft with 2 Turns (QC): 6 Walk 150 ft (QC): 6 PT Plan Problem List Problem List: Activity Tolerance, Functional Strength, Safety, Balance, Gait, Transfer, Bed Mobility, ROM Treatment/Plan Treatment Plan: Continue Plan of Care Treatment Plan: Bed Mobility, Education, Functional Activity Natasha, Functional Strength, Gait, Safety, Therapeutic Exercise, Transfers Treatment Duration: Sep 24, 2019 Frequency: 11 times per week Estimated Hrs Per Day: .25 hour per day Patient and/or Family Agrees t: Yes Safety Risks/Education Patient Education: Gait Training, Transfer Techniques Teaching Recipient: Patient Teaching Methods: Demonstration, Discussion Time/GCodes Time In: 826 Time Out: 849 Total Billed Treatment Time: 23 Total Billed Treatment 1 visit GT 11 EX 12 HAROON MACHUCA PT Sep 19, 2019 10:02
[2019-09-19 10:50] VITALS: BP 158/89
--- NOTE | 2019-09-19 16:08 | Progress Note - Hospitalist ---
Subjective HPI/CC On Admission Date Seen by Provider: Sep 19, 2019 Time Seen by Provider: 10:50 Newton Thomas is a 58-year-old male with past medical history of prediabetes, osteoarthritis, who presented for a total knee arthroplasty. He underwent the surgery today and reportedly went well. He has no complaints or concerns at this time. He denies any fevers, chills, chest pain, shortness of breath, abdominal pain, nausea, vomiting, diarrhea, or constipation. He does have a history of prediabetes and takes metformin for this. We discussed the use of the incentive spirometer to help prevent pneumonia. We discussed the use of a bowel regimen to help prevent opioid-induced constipation. We discussed the need for early ambulation as well. Subjective/Events-last exam he reports no new complaints or concerns. His blood pressures remained elevated. His pain is well-controlled. He is planning on discharging today. Objective Exam Vital Signs Vital Signs Date Time Temp Pulse Resp B/P (MAP) Pulse Ox O2 Delivery O2 Flow Rate FiO2 09/19/19 10:50 36.9 97 20 158/89 99 Room Air 2.00 Capillary Refill : Less Than 3 SecondsLess Than 3 Seconds General Appearance: No Apparent Distress, WD/WN, Obese Respiratory: Lungs Clear, Normal Breath Sounds, No Respiratory Distress Cardiovascular: Regular Rate, Rhythm, No Edema, No Murmur Gastrointestinal: Normal Bowel Sounds, Non Tender, Soft Extremity: Normal Inspection, Non Tender, No Pedal Edema Neurologic/Psychiatric: Alert, Oriented x3, No Motor/Sensory Deficits, Normal Mood/Affect Results/Procedures Lab Laboratory Tests 09/19/19 04:45 Patient resulted labs reviewed. Imaging: Reviewed Imaging Report Assessment/Plan Assessment and Plan Assess & Plan/Chief Complaint Osteoarthritis Status post total knee arthroplasty Underwent TKA 3/4 Pain regimen ordered Bowel regimen in place Incentive spirometer PT/OT Prediabetes Continue metformin Sliding scale insulin hypertension Started on lisinopril, continue on discharge DVT prophylaxis: Lovenox Diagnosis/Problems Diagnosis/Problems (1) S/P total knee replacement Status: Acute (2) Osteoarthritis Status: Acute (3) Prediabetes Status: Chronic (4) Essential hypertension Status: Chronic Clinical Quality Measures DVT/VTE Risk/Contraindication: Risk Factor Score Per Nursin RFS Level Per Nursing on Admit: 4+=Very High MINDY ZHU MD Sep 19, 2019 16:08
--- OUTSIDE RECORDS SUMMARY | 2019-09-22 05:38 | XMS REPORT ---
Author Author Newton SNEED [facility] Address [address] [place] [address] Care Team Providers Care Sas Bi Developer Name Role Phone EBENEZER SNEED Unavailable PROBLEMS Unknown Problems ALLERGIES Unknown Allergies SOCIAL HISTORY No smoking Hx information available PLAN OF CARE Activity Details Follow Up 48-72 hours Reason: VITAL SIGNS MEDICATIONS Unknown Medications RESULTS No Results PROCEDURES Procedure Date Ordered Related Diagnosis Body Site TB INTRADERMAL 2016-07-11 N/A TB INTRADERMAL TEST Jul 11, 2016 IMMUNIZATIONS No Known Immunizations
--- OUTSIDE RECORDS SUMMARY | 2019-09-22 05:38 | XMS REPORT ---
Author Author Newton Gonzalez Doctor Organization [facility] Address Unknown Phone Unavailable Care Team Providers Care Envelope Machine Adjuster Name Role Phone Migration, Doctor Unavailable Unavailable PROBLEMS Unknown Problems ALLERGIES No Information ENCOUNTERS Encounter Location Date Diagnosis [place] [address] [facility] [id number] [address] [place] [phone] Jun, Visit for TB skin test Z11.1 [place] [address] [facility] [id number] [address] [place] [id number] Sep, [facility] [address] [facility] [id number] [address] [place] [phone] May, IMMUNIZATIONS No Known Immunizations SOCIAL HISTORY Never Assessed REASON FOR VISIT EMR-[facility] PLAN OF CARE VITAL SIGNS MEDICATIONS Unknown Medications RESULTS No Results PROCEDURES No Known procedures INSTRUCTIONS MEDICATIONS ADMINISTERED No Known Medications
--- OUTSIDE RECORDS SUMMARY | 2019-09-22 05:38 | XMS REPORT | Continuity of Care Document ---
Author Organization Unknown Address Unknown Phone Unavailable Allergies Active Description Code Type Severity Reaction Onset Reported/Identified Relationship to Patient Clinical Status Yes No Known Drug Allergies [id number] Drug Allergy Mild N/A 11/09/2009 Yes No Known Drug Allergies [id number] Drug Allergy Unknown N/A 09/02/2019 Medications There is no data. Problems Date Dx Coded Attending Type Code Diagnosis Diagnosed By 11/20/2010 Ot 845.00 11/20/2010 Ot 959.7 11/20/2010 Ot E000.8 11/20/2010 Ot E849.6 11/20/2010 Ot E927.0 07/16/2012 Ot 466.0 07/16/2012 Ot 786.2 04/06/2015 Ot 486 04/06/2015 Ot 786.2 04/06/2015 Ot 327.23 04/06/2015 Ot 401.9 04/06/2015 Ot 786.09 04/06/2015 Ot 786.09 04/06/2015 Ot 715.36 04/06/2015 Ot 719.46 04/06/2015 Ot 726.69 04/06/2015 Ot 729.81 05/18/2015 Ot 327.23 05/18/2015 Ot 401.9 05/18/2015 Ot 786.09 05/18/2015 Ot 786.09 05/18/2015 Ot 715.36 05/18/2015 Ot 719.46 05/18/2015 Ot 726.69 05/18/2015 Ot 729.81 05/18/2015 Ot 327.23 05/18/2015 Ot 401.9 05/18/2015 Ot 786.09 05/18/2015 Ot 786.09 05/18/2015 Ot 715.36 05/18/2015 Ot 719.46 05/18/2015 Ot 726.69 05/18/2015 Ot 729.81 05/19/2015 Ot 327.23 05/19/2015 Ot 401.9 05/19/2015 Ot 786.09 05/19/2015 Ot 786.09 05/19/2015 Ot 715.36 05/19/2015 Ot 719.46 05/19/2015 Ot 726.69 05/19/2015 Ot 729.81 05/14/2018 NITESH JORDAN MD Ot M17.0 BILATERAL PRIMARY OSTEOARTHRITIS OF KNEE 05/24/2018 NITESH JORDAN MD, Ot M17.0 BILATERAL PRIMARY OSTEOARTHRITIS OF KNEE 11/23/2018 NITESH JORDAN MD, Ot M17.0 BILATERAL PRIMARY OSTEOARTHRITIS OF KNEE 09/02/2019 NITESH JORDAN MD, Ot M17.0 BILATERAL PRIMARY OSTEOARTHRITIS OF KNEE 09/02/2019 NITESH JORDAN MD, Ot M17.11 UNILATERAL PRIMARY OSTEOARTHRITIS, RIGHT 09/02/2019 NITESH JORDAN MD Ot R53.83 OTHER FATIGUE 09/02/2019 NITESH JORDAN MD Ot Z01.818 ENCOUNTER FOR OTHER PREPROCEDURAL EXAMIN 09/02/2019 NITESH JORDAN MD Ot Z11.2 ENCOUNTER FOR SCREENING FOR OTHER BACTER 09/03/2019 NITESH JORDAN MD Ot M17.11 UNILATERAL PRIMARY OSTEOARTHRITIS, RIGHT 09/03/2019 NITESH JORDAN MD Ot R53.83 OTHER FATIGUE 09/03/2019 NITESH JORDAN MD Ot Z01.818 ENCOUNTER FOR OTHER PREPROCEDURAL EXAMIN 09/03/2019 NITESH JORDAN MD Ot Z11.2 ENCOUNTER FOR SCREENING FOR OTHER BACTER 09/15/2019 NITESH JORDAN MD Ot M17.0 BILATERAL PRIMARY OSTEOARTHRITIS OF KNEE Procedures There is no data. Results Test Result Range Complete blood count (CBC) with automate d white blood cell (WBC) differential - 09/02/19 13:55 Blood leukocytes automated count (number/volume) 9.3 10*3/uL 4.3-11.0 Blood erythrocytes automated count (number/volume) 4.89 10*6/uL 4.35-5.85 Venous blood hemoglobin measurement (mass/volume) 14.2 g/dL 13.3-17.7 Blood hematocrit (volume fraction) 43 % 40-54 Automated erythrocyte mean corpuscular volume 87 [ foz_us] 80-99 Automated erythrocyte mean corpuscular h emoglobin (mass per erythrocyte) 29 pg 25-34 Automated erythrocyte mean corpuscular h emoglobin concentration measurement (mass/volume) 33 g/dL 32-36 Automated erythrocyte distribution width ratio 14. 0 % 10.0- 14.5 Automated blood platelet count (count/volume) 304 10*3/uL 130-400 Automated blood platelet mean volume measurement 9.0 [foz_us] 7.4-10.4 Automated blood neutrophils/100 leukocytes 67 % 42-75 Automated blood lymphocytes/100 leukocytes 24 % 12-44 Blood monocytes/100 leukocytes 8 % 0-12 Automated blood eosinophils/100 leukocytes 1 % 0-10 Automated blood basophils/100 leukocytes 0 % 0-10 Blood neutrophils automated count (number/volume) 6.2 10*3 1.8-7.8 Blood lymphocytes automated count (number/volume) 2.2 10*3 1.0-4.0 Blood monocytes automated count (number/volume) 0. 7 10*3 0.0-1.0 Automated eosinophil count 0.1 10*3/uL 0 .0-0.3 Automated blood basophil count (count/volume) 0.0 10*3/uL 0.0-0.1 PT panel in platelet poor plasma by coag ulation assay - 09/02/19 13:55 Prothrombin time (PT) in platelet poor plasma by coagu lation assay 12.2 s 12.2-14.7 INR in platelet poor plasma or blood by coagulation as say 0.9 0.8-1.4 Comprehensive metabolic panel - 09/02/19 13:55 Serum or plasma sodium measurement (moles/volume) 140 mmol/L 135-145 Serum or plasma potassium measurement (moles/volume) 4.3 mmol/L 3.6-5.0 Serum or plasma chloride measurement (moles/volume) 104 mmol/L 98-107 Carbon dioxide 26 mmol/L 21-32 Serum or plasma anion gap determination (moles/volume) 10 mmol/L 5-14 Serum or plasma urea nitrogen measurement (mass/volume ) 16 mg/dL 7-18 Serum or plasma creatinine measurement (mass/volume) 1.26 mg/dL 0.60-1.30 Serum or plasma urea nitrogen/creatinine mass ratio 13 NRG Serum or plasma creatinine measurement w ith calculation of estimated glomerular filtration rate 59 NRG Serum or plasma glucose measurement (mass/volume) 107 mg/dL 70-105 Serum or plasma calcium measurement (mass/volume) 10.4 mg/dL 8.5-10.1 Serum or plasma total bilirubin measurement (mass/volu me) 0.3 mg/dL 0.1-1.0 Serum or plasma alkaline phosphatase madiha surement (enzymatic activity/volume) 99 U/L 40-136 Serum or plasma aspartate aminotransfera se measurement (enzymatic activity/volume) 34 U/L 5-34 Serum or plasma alanine aminotransferase measurement (enzymatic activity/volume) 48 U/L 0-55 Serum or plasma protein measurement (mass/volume) 7.7 g/dL 6.4-8.2 Serum or plasma albumin measurement (mass/volume) 4.3 g/dL 3.2-4.5 CALCIUM CORRECTED 10.2 mg/dL 8.5-10.1 Erythrocyte sedimentation rate by nicole gren method - 09/02/19 13:55 Erythrocyte sedimentation rate by westergren method 19 mm 0- 30 Blood type T Indirect antibody screen pa jenn - 09/02/19 13:55 ABO+Rh group AP NRG Blood group antibody screen NEGATIVE NR G Methicillin resistant Staphylococcus aur eus (MRSA) screening culture - 09/02/19 13:55 Methicillin resistant Staphylococcus aureus (MRSA) scr eening culture NEG NRG Complete urinalysis with reflex to cultu re - 09/02/19 14:00 Urine color determination YELLOW NRG Urine clarity determination CLOUDY NR G Urine pH measurement by test strip 7.0 5-9 Specific gravity of urine by test strip 1.020 1.016-1.022 Urine protein assay by test strip, semi-quantitative NEGATIVE NEGATIVE Urine glucose detection by automated test strip NE GATIVE NEGATIVE Erythrocytes detection in urine sediment by light micr oscopy NEGATIVE NEGATIVE Urine ketones detection by automated test strip NE GATIVE NEGATIVE Urine nitrite detection by test strip NEGATIVE NEGATIVE Urine total bilirubin detection by test strip NEGA TIVE NEGATIVE Urine urobilinogen measurement by automated test strip (mass/volume) 0.2 mg/dL < = 1.0 Urine leukocyte esterase detection by dipstick NEG ATIVE NEGATIVE Automated urine sediment erythrocyte cou nt by microscopy (number/high power field) NONE NRG Automated urine sediment leukocyte count by microscopy (number/high power field) RARE NRG Bacteria detection in urine sediment by light microsco py NEGATIVE NRG Squamous epithelial cells detection in u rine sediment by light microscopy RARE NRG Crystals detection in urine sediment by light microsco py NONE NRG Casts detection in urine sediment by light microscopy NONE NRG Mucus detection in urine sediment by light microscopy NEGATIVE NRG Complete urinalysis with reflex to culture NO NRG Capillary blood glucose measurement by g lucometer (mass/volume) - 09/17/19 07:44 Capillary blood glucose measurement by glucometer (mas s/volume) 99 mg/dL 70-110 Capillary blood glucose measurement by g lucometer (mass/volume) - 09/17/19 16:05 Capillary blood glucose measurement by glucometer (mas s/volume) 117 mg/dL 70-110 Capillary blood glucose measurement by g lucometer (mass/volume) - 09/17/19 20:41 Capillary blood glucose measurement by glucometer (mas s/volume) 106 mg/dL 70-110 Whole blood hemoglobin and hematocrit pa jenn - 09/18/19 05:55 Venous blood hemoglobin measurement (mass/volume) 12.5 g/dL 13.3-17.7 Blood hematocrit (volume fraction) 39 % 40-54 Whole blood basic metabolic panel - 12/02 05:55 Serum or plasma sodium measurement (moles/volume) 137 mmol/L 135-145 Serum or plasma potassium measurement (moles/volume) 4.8 mmol/L 3.6-5.0 Serum or plasma chloride measurement (moles/volume) 104 mmol/L 98-107 Carbon dioxide 24 mmol/L 21-32 Serum or plasma anion gap determination (moles/volume) 9 mmol/L 5-14 Serum or plasma urea nitrogen measurement (mass/volume ) 15 mg/dL 7-18 Serum or plasma creatinine measurement (mass/volume) 1.06 mg/dL 0.60-1.30 Serum or plasma urea nitrogen/creatinine mass ratio 14 NRG Serum or plasma creatinine measurement w ith calculation of estimated glomerular filtration rate > NRG Serum or plasma glucose measurement (mass/volume) 111 mg/dL 70-105 Serum or plasma calcium measurement (mass/volume) 9.0 mg/dL 8.5-10.1 Hemoglobin A1c measurement - 09/18/19 05 :55 Blood hemoglobin A1C measurement (mass/volume) 5.8 % 4.0-5.6 MEAN BLOOD GLUCOSE 120 % <=126 Capillary blood glucose measurement by g lucometer (mass/volume) - 09/18/19 06:07 Capillary blood glucose measurement by glucometer (mas s/volume) 106 mg/dL 70-110 Capillary blood glucose measurement by g lucometer (mass/volume) - 09/18/19 11:44 Capillary blood glucose measurement by glucometer (mas s/volume) 114 mg/dL 70-110 Capillary blood glucose measurement by g lucometer (mass/volume) - 09/18/19 16:12 Capillary blood glucose measurement by glucometer (mas s/volume) 133 mg/dL 70-110 Capillary blood glucose measurement by g lucometer (mass/volume) - 09/18/19 20:06 Capillary blood glucose measurement by glucometer (mas s/volume) 130 mg/dL 70-110 Whole blood hemoglobin and hematocrit pa jenn - 09/19/19 04:45 Venous blood hemoglobin measurement (mass/volume) 12.3 g/dL 13.3-17.7 Blood hematocrit (volume fraction) 38 % 40-54 Capillary blood glucose measurement by g lucometer (mass/volume) - 09/19/19 05:00 Capillary blood glucose measurement by glucometer (mas s/volume) 127 mg/dL 70-110 Encounters ACCT No. Visit Date/Time Discharge Status Pt. Type Provider Facility Loc./Unit Complaint [id number] 09/17/2019 07:23:00 020 10:50:00 DIS Inpatient NITESH JORDAN MD [facility] 4TH RIGHT KNEE OSTEOARTHRIT IS [id number] 09/02/2019 13:21:00 020 15:33:00 DIS Outpatient NITESH JORDAN MD [facility] PREOP RIGHT KNEE OSTEOARTHRI TIS [id number] 05/11/2018 13:21:00 018 23:59:59 CLS Outpatient NITESH JORDAN MD [facility] RAD M17.9 [id number] 04/06/2015 09:37:00 Document Registration [id number] 07/16/2012 08:22:00 Document Registration [id number] 05/08/2012 09:11:00 Document Registration [id number] 03/22/2012 13:42:00 Document Registration [id number] 07/19/2011 12:28:00 Document Registration [id number] 11/20/2010 13:19:00 Document Registration [id number] 07/27/2010 19:48:00 Document Registration [id number] 11/09/2009 06:17:00 Document Registration
== END 2019-09-19 10:50 | disposition home health service (06) | DRG 470 ==
LOC: 4TH 07:23 → SURG 07:24 → 4TH 12:10
PROVIDERS: ADMIT Orthopaedic Surgery; ATTEND Orthopaedic Surgery
PROC: 0SRC0J9 Replacement of Right Knee Joint with Synthetic Substitute, Cemented, Open Approach (ICD-10-PCS; principal; 2019-09-17 09:31)
DX: M17.11 Unilateral primary osteoarthritis, right knee (principal); Z68.41 Body mass index [BMI] 40.0-44.9, adult; R73.03 Prediabetes; R03.0 Elevated blood-pressure reading, without diagnosis of hypertension; E66.01 Morbid (severe) obesity due to excess calories; G47.33 Obstructive sleep apnea (adult) (pediatric); Z87.891 Personal history of nicotine dependence
CPT/HCPCS: 36415; 73560; 80048; 82962; 83036; 85014; 85018; 86850; 86900; 86901; 94664

== ENCOUNTER 2020-01-02 08:52 | Outpatient (RCR) | payer BC ==
[~2020-01-02 08:52] MED LIST changes: +ACETAMINOPHEN 500 MG TAB (TYLENOL) PO PRN; +ALPRAZolam 0.25 MG (XANAX) TAB PO PRN; +BISACODYL 10 MG SUPP (DULCOLAX) PR PRN; +CALCIUM CARBONATE 500 MG (TUMS) TAB.CHEW PO PRN; +DOCUSATE SODIUM 100 MG (COLACE) CAP PO PRN; +DOCUSATE SODIUM 100 MG (COLACE) CAP PO SCH; +ENOXAPARIN 40 MG/0.4 ML (LOVENOX) SYR SC SCH; +FLEET ENEMA ADULT 1 EA BTL PR PRN; +HYDROcodone/APAP 5 MG/325 MG (LORTAB) TAB PO PRN; +LACTULOSE SYRUP 10GM/15ML (ENULOSE) 30ML UDC PO PRN; +LISI40TA PO; +LOPERAMIDE 2 MG (IMODIUM) TABLET PO PRN; +MELATONIN 3 MG TABLET PO PRN; +ONDANSETRON 4 MG (ZOFRAN) ORAL DISSOLVE TAB PO PRN; +OXYC1TAB87 PO; +SENNA W/DOCUSATE (SENOKOT S) TABLET PO SCH; +diphenhydrAMINE 25 MG TAB (BENADRYL) PO PRN; +guaiFENesin/CODEINE (ROBITUSSIN AC) 10ML UDC PO PRN; +polyethylene glycoL POWDER 17 GM (MIRALAX) PACK PO SCH
== END 2020-01-04 | disposition home or self-care (01) ==
PROVIDERS: ATTEND Orthopaedic Surgery
DX: Z47.1 Aftercare following joint replacement surgery (principal); Z96.651 Presence of right artificial knee joint; J45.909 Unspecified asthma, uncomplicated; R73.03 Prediabetes

== ENCOUNTER 2020-01-23 08:01 | Outpatient (RCR) | payer BC ==
[~2020-01-23 08:01] MED LIST changes: -ACETAMINOPHEN 500 MG TAB (TYLENOL) PO PRN; -ALPRAZolam 0.25 MG (XANAX) TAB PO PRN; -BISACODYL 10 MG SUPP (DULCOLAX) PR PRN; -CALCIUM CARBONATE 500 MG (TUMS) TAB.CHEW PO PRN; -DOCUSATE SODIUM 100 MG (COLACE) CAP PO PRN; -DOCUSATE SODIUM 100 MG (COLACE) CAP PO SCH; -ENOXAPARIN 40 MG/0.4 ML (LOVENOX) SYR SC SCH; -FLEET ENEMA ADULT 1 EA BTL PR PRN; -HYDROcodone/APAP 5 MG/325 MG (LORTAB) TAB PO PRN; -LACTULOSE SYRUP 10GM/15ML (ENULOSE) 30ML UDC PO PRN; -LOPERAMIDE 2 MG (IMODIUM) TABLET PO PRN; -MELATONIN 3 MG TABLET PO PRN; -ONDANSETRON 4 MG (ZOFRAN) ORAL DISSOLVE TAB PO PRN; -SENNA W/DOCUSATE (SENOKOT S) TABLET PO SCH; -diphenhydrAMINE 25 MG TAB (BENADRYL) PO PRN; -guaiFENesin/CODEINE (ROBITUSSIN AC) 10ML UDC PO PRN; -polyethylene glycoL POWDER 17 GM (MIRALAX) PACK PO SCH
== END 2020-01-23 12:30 | disposition home or self-care (01) ==
PROVIDERS: ATTEND Orthopaedic Surgery
DX: Z47.1 Aftercare following joint replacement surgery (principal); Z96.651 Presence of right artificial knee joint; J45.909 Unspecified asthma, uncomplicated; R73.03 Prediabetes